=== PATIENT | male | born 1985 | race Caucasian/White ===

== ENCOUNTER 2021-12-26 08:48 | Day surgery (SDC) | payer OTHER, SELFPAY ==
[2021-12-26 09:01] VITALS: BP 125/96; PULSE 80; RESP 16; TEMP 36.5; O2SAT 98
[2021-12-26 09:12] VITALS: BMI 32.5
[2021-12-26] MEDS: LACTATED RINGERS 1000 ML 1,000 ML 100 ML IV (09:25)
[2021-12-26] MEDS: SODIUM CHLORIDE 0.9 % (FLUSH) 10 ML SYRINGE IVF (09:25)
[2021-12-26] MEDS: CEFAZOLIN 1 GM inj IVP (10:20)
[2021-12-26] MEDS: BUPIVACAINE 0.25% 30 ML 3.5 ML INJECTION (10:33)
--- NOTE | 2021-12-26 10:36 | SUR.OPER ---
PATIENT QUESTIONS ANSWERED SATISFACTORILY PREOPERATIVELY.? PATIENT BROUGHT TO OR #1 PER CART.? Patient positioned supine on OR #1 bed.?The perioperative?team supported arms bilaterally on arm boards.? Final approval of positioning by surgeon.?
[2021-12-26] MEDS: BUPIVACAINE 0.25% 30 ML INJECTION (10:41)
--- NOTE | 2021-12-26 10:52 | PM.GSPRC ---
Operative Note Date of procedure: 12/26/21 Type of Procedure: Excision of lipoma x2 left upper extremity. Excision of lipoma right upper extremity. Procedure Description: After discussing the risks and benefits of the procedure, the patient signed informed consent.? The operative site was marked and the patient was brought to the operating room and placed on the operating table in supine position.? Care was taken to pad the patient's pressure points.?? The patient was then given sedation by anesthesia.?? The operative site was then prepped and draped in the usual sterile fashion.? A time-out was then performed. Attention was 1st directed to the left upper extremity. The surgical field was anesthetized with a mixture of 1% lidocaine and 0.25% Marcaine. A vertical incision was made directly over the largest mass on the medial aspect of the left forearm. Dissection was carried through subcutaneous tissue with cautery. A well encapsulated lipomatous mass was encountered. Surrounding attachments were bluntly dissected. The mass was able to be removed in its entirety. The mass measured 4.5 cm x 3 cm x 2 cm in size and was multi lobulated. Through the same incision a smaller lipoma was identified just superior to the 1st. Surrounding attachments were again bluntly dissected. The mass was able to be removed in its entirety. The mass measured 2.5 x 2 x 1 cm in size. Hemostasis was assured with electrocautery. The incision was closed in layers with interrupted 3 0 Vicryl and running 4 O Monocryl subcuticular stitch. Dermabond was placed over top. Attention was then directed to the right upper extremity. The surgical field was anesthetized with mixture 1% lidocaine and 0.25% Marcaine. A vertical incision was made directly over the outlined mass on the medial aspect of the right forearm. Dissection was carried through subcutaneous tissue with cautery. A welling capsulated lipomatous mass was encountered. Surrounding attachments were bluntly dissected. The mass was able to be removed in its entirety. The mass measured 0.5 cm x 1 cm x 1 cm in size. Hemostasis was assured with electrocautery. The incision was closed in layers with interrupted 3 0 Vicryl and running 4-0 Monocryl subcuticular stitch. Dermabond was placed over top. ? The patient was then woken and transported to the recovery area in stable condition. ? The patient tolerated the procedure well. Findings: Bilateral upper extremity lipomas. Anesthesia: MAC and local Surgeon: Renee Guevara MD Estimated blood loss (mL): 5 Condition: stable Disposition: same day
[2021-12-26 11:01] VITALS: BP 104/63; PULSE 16; RESP 79; TEMP 36.4; O2SAT 95
--- NOTE | 2021-12-26 11:06 | W.ANESCHARGE ---
Anesthesia Charges Start Date/Time Anesthesia Start Date: 12/26/21 Anesthesia Start Time: 10:13 Stop Date/Time Anesthesia Stop Date: 12/26/21 Anesthesia Stop Time: 11:04 Summary Emergency: No
[2021-12-26 11:15] VITALS: BP 108/79; PULSE 16; RESP 69; O2SAT 96
[2021-12-26 11:30] VITALS: BP 110/79; PULSE 16; RESP 61; O2SAT 97
--- NOTE | 2021-12-26 11:39 | W.ANESCHARGE ---
Anesthesia Charges Start Date/Time Anesthesia Start Date: 12/26/21 Anesthesia Start Time: 10:13 Stop Date/Time Anesthesia Stop Date: 12/26/21 Anesthesia Stop Time: 11:04 Summary Emergency: No
== END 2021-12-26 11:58 | disposition home or self-care (01) ==
PROVIDERS: PCP Family Medicine; Visit Provider Surgery
PROC: (CPT 25075; principal; 2021-12-26 10:45)
DX: D17.22 Benign lipomatous neoplasm of skin and subcutaneous tissue of left arm (principal); D17.21 Benign lipomatous neoplasm of skin and subcutaneous tissue of right arm
CPT/HCPCS: 25075; 25071; 400; 88304; J0690; J1100; J1885; J2250; J2405; J2704; J3010; J3490; J7120